=== PATIENT | male | born 1940 | race Caucasian/White ===

== ENCOUNTER 2021-11-12 14:22 | Emergency (ER) | payer MEDICARE ==
[~2021-11-12] VITALS: Ht 190.5 cm; Wt 111.3 kg
[2021-11-12] VITALS (10 sets, daily range): BP systolic 112–140; BP diastolic 68–85
[2021-11-12] MEDS ORDERED: LOSARTAN POTASS25 MG PO (16:52)
== END 2021-11-12 17:11 | disposition home or self-care (01) ==
LOC: ED 14:22
PROC: 2W3UXYZ Immobilization of Right Toe using Other Device (ICD-10-PCS; principal; 2021-11-12)
DX: S92.511A Displaced fracture of proximal phalanx of right lesser toe(s), initial encounter for closed fracture (principal); I10 Essential (primary) hypertension; G62.9 Polyneuropathy, unspecified; W18.40XA Slipping, tripping and stumbling without falling, unspecified, initial encounter; Y92.009 Unspecified place in unspecified non-institutional (private) residence as the place of occurrence of the external cause; Z86.718 Personal history of other venous thrombosis and embolism

== ENCOUNTER 2021-11-20 13:46 | Emergency (ER) | payer MEDICARE ==
[~2021-11-20] VITALS: Ht 190.5 cm; Wt 111.3 kg
[~2021-11-20 13:46] MED LIST: LOSARTAN POTASS25 MG PO
[2021-11-20] MEDS ORDERED: OMNICEF300 M1 PO (14:17)
[2021-11-20] MEDS ORDERED: DOXY-CAPS100 MG PO (14:17)
[2021-11-20 15:07] LABS: HEMATOCRIT 38.8 % (39.0-50.0); HEMOGLOBIN 13.8 g/dl (14.0-18.0); IMMATURE GRANULOCYTES 0.4 % (0.0-5.0); MEAN CELL VOLUME 106.3 fL CALC (80.0-100.0); MEAN CORPUSCULAR HGB 37.8 pG CALC (26.0-32.0); MEAN CORPUSCULAR HGB CONC 35.6 g/dL CAL (32.0-36.0); NEUT# 3.46 thou/uL (1.82-7.42); RED BLOOD COUNT 3.65 mill/uL (4.70-6.10); RED CELL DISTRI WIDTH 12.7 % (11.5-15.5)
[2021-11-20 15:32] LABS: ALBUMIN 3.9 g/dL (3.2-5.0); ALKALINE PHOSPHATASE 54 u/l (38-126); ANION GAP 13 (6-22 (CALC)); BILIRUBIN, TOTAL 1.2 mg/dL (0.0-1.4); BUN 14 mg/dL (8-23); BUN/CREATININE RATIO 15 (12-20 (CALC)); CARBON DIOXIDE 25 mmol/l (22-30); CHLORIDE 101 mmol/l (95-108); GFR FOR AFR.AMER. > 60 ML/MIN (>=60 (CALC)); GFR OTHER RACES > 60 ML/MIN (>=60 (CALC)); POTASSIUM 3.2 mmol/l (3.5-5.1); SGOT/AST 54 u/l (19-48); SODIUM 136 mmol/l (137-146); TOTAL PROTEIN 6.7 g/dL (6.3-8.2)
[2021-11-20 17:24] VITALS: BP 130/76
== END 2021-11-20 17:40 | disposition home or self-care (01) ==
LOC: ED 13:46
PROVIDERS: Family Medicine
DX: L03.114 Cellulitis of left upper limb (principal); I10 Essential (primary) hypertension; G62.9 Polyneuropathy, unspecified; Z86.718 Personal history of other venous thrombosis and embolism

== ENCOUNTER 2022-04-21 10:08 | Emergency (ER) | payer MEDICARE ==
[~2022-04-21] VITALS: Ht 190.5 cm; Wt 108.9 kg
[~2022-04-21 10:08] MED LIST changes: +DOXY-CAPS100 MG PO; +OMNICEF300 M1 PO
[2022-04-21 10:40] VITALS: BP 142/95
[2022-04-21 10:45] VITALS: BP 137/89
[2022-04-21 11:00] VITALS: BP 137/82
[2022-04-21 11:15] VITALS: BP 138/82
[2022-04-21 12:50] LABS: URINE BLOOD DIPSTICK TRACE-INTACT (NEGATIVE); URINE GLUCOSE - DIPSTICK NEGATIVE (NEGATIVE); URINE KETONE 40 mg/dL (NEGATIVE); URINE LEUK ESTERASE NEGATIVE (NEGATIVE); URINE PROTEIN - DIPSTICK TRACE mg/dL (NEG-TRACE)
[2022-04-21 12:56] LABS: URINE BILIRUBIN - DIPSTICK MODERATE (NEGATIVE)
[2022-04-21 12:57] LABS: URINE COLOR DK. YELLOW; URINE NITRITE - DIPSTICK POSITIVE (Negative)
[2022-04-21 12:58] LABS: URINE BACTERIA FEW hpf; URINE RBC 0-2 RBC/hpf (0-5)
[2022-04-21] MEDS ORDERED: NAPROXEN500 MG PO (13:10)
[2022-04-21 13:30] VITALS: BP 138/82
== END 2022-04-21 13:41 | disposition home or self-care (01) ==
LOC: ED 10:08
PROVIDERS: Emergency Medicine
DX: S09.90XA Unspecified injury of head, initial encounter (principal); R07.81 Pleurodynia; M54.6 Pain in thoracic spine; M54.2 Cervicalgia; I10 Essential (primary) hypertension; G62.9 Polyneuropathy, unspecified; H35.30 Unspecified macular degeneration; W01.0XXA Fall on same level from slipping, tripping and stumbling without subsequent striking against object, initial encounter; Y92.009 Unspecified place in unspecified non-institutional (private) residence as the place of occurrence of the external cause; Z79.01 Long term (current) use of anticoagulants; Z86.718 Personal history of other venous thrombosis and embolism

== ENCOUNTER 2022-05-04 16:11 | Observation (INO) | payer MEDICARE ==
[~2022-05-04] VITALS: Ht 185.4 cm; Wt 112.5 kg
[2022-05-04] VITALS (18 sets, daily range): BP systolic 42–148; BP diastolic 23–92
[~2022-05-04 16:11] MED LIST changes: +NAPROXEN500 MG PO
--- NOTE | 2022-05-04 16:27 | NUR ---
PT AMBULATED TO ROOM 6, NO ACUTE DISTRESS. EKG COMPLETED AND AND PT HOOKED UP TO MONITOR.
[2022-05-04 18:16] LABS: BASO% 0.6 % (0-3); HEMATOCRIT 38.1 % (39.0-50.0); HEMOGLOBIN 12.5 g/dl (14.0-18.0); LYMPH% 23.6 % (15-41); MEAN CELL VOLUME 111.1 fL CALC (80.0-100.0); MEAN CORPUSCULAR HGB 36.4 pG CALC (26.0-32.0); MEAN CORPUSCULAR HGB CONC 32.8 g/dL CAL (32.0-36.0); MONO% 5.7 % (2-13); NEUT# 3.44 thou/uL (1.82-7.42); NEUT% 68.1 % (42-76); RED BLOOD COUNT 3.43 mill/uL (4.70-6.10); RED CELL DISTRI WIDTH 12.9 % (11.5-15.5)
[2022-05-04 18:27] LABS: ALBUMIN 3.9 g/dL (3.2-5.0); ALKALINE PHOSPHATASE 65 u/l (38-126); BUN 11 mg/dL (8-23); BUN/CREATININE RATIO 12 (12-20 (CALC)); CARBON DIOXIDE 27 mmol/l (22-30); CHLORIDE 107 mmol/l (95-108); CREATININE 0.9 mg/dL (0.7-1.3); GFR FOR AFR.AMER. > 60 ML/MIN (>=60 (CALC)); GFR OTHER RACES > 60 ML/MIN (>=60 (CALC)); SGOT/AST 36 u/l (19-48); SODIUM 141 mmol/l (137-146)
[2022-05-04 18:29] LABS: ANION GAP 11 (6-22 (CALC)); BILIRUBIN, TOTAL 0.7 mg/dL (0.2-1.3); POTASSIUM 4.1 mmol/l (3.5-5.1)
[2022-05-04 18:42] LABS: INTERNATIONAL NORMALIZED RATIO 1.2 RATIO (0.7-1.3); PROTHROMBIN TIME 11.6 SECONDS (9.0-12.5)
[2022-05-04 18:45] LABS: D-DIMER 3.37 mg/L (0.19-0.60)
--- NOTE | 2022-05-04 18:54 | NUR ---
MAG 0.4 REPORTED TO CHRISTIAN
--- NOTE | 2022-05-04 19:39 | NUR ---
NOTIFIED RADIOLOGY PT HAS BEEN MEDICATED.
[2022-05-05] VITALS (12 sets, daily range): BP systolic 96–137; BP diastolic 37–81
--- NOTE | 2022-05-05 00:59 | NUR ---
GAVE REPORT TO АЛЕКСАНДР HORAN. BESSIE, NURSE SUP TO COME TRANSFER PT ONCE FLOOR IS READY. WILL CONTINUE TO MONITOR.
--- NOTE | 2022-05-05 02:14 | NUR ---
PATIENT CAME UP FROM ED AT THIS TIME ON STRETCHER. PATIENT ALERT AND ORIENTED X 3. PATIENT DENEIS ANY PAIN AT THIS TIME. PATIENT PRESENTED ON TELE AND READING SINUS RHYTHM AT 99. PROJECT TECHNICIAN DONE AT THIS TIME. LUNGS ARE CLEAR AND BOWEL SOUNDS PRESENT. PATIENT DOES PRESENT WITH 2+ BILATERAL ANKLE EDEMA AT THIS TIME. PATIENT ASSISTED TO BATHROOM AND DID HAVE LARGE SOFT BROWN BOWEL MOVEMENT AND THEN ASSISTED BACK TO BED. PATIENT IN ON ROOM AIR AND WITHOUT DIFFICULTY IN BREATHING AT THIS TIME. PATIENT GIVEN ROOM ORIENTATIONS AND FALL SAFETY CONTRACT SIGHED AT THIS TIME. SIDERAILS ARE UP X 2 CALL LIGHT WIHTIN REACH.
[2022-05-05 04:43] LABS: HEMATOCRIT 33.6 % (39.0-50.0); HEMOGLOBIN 11.3 g/dl (14.0-18.0); MEAN CELL VOLUME 110.2 fL CALC (80.0-100.0); MEAN CORPUSCULAR HGB CONC 33.6 g/dL CAL (32.0-36.0); RED BLOOD COUNT 3.05 mill/uL (4.70-6.10); RED CELL DISTRI WIDTH 12.9 % (11.5-15.5)
[2022-05-05 04:48] LABS: ALBUMIN 3.2 g/dL (3.2-5.0); ALKALINE PHOSPHATASE 57 u/l (38-126); ANION GAP 7 (6-22 (CALC)); BILIRUBIN, TOTAL 0.5 mg/dL (0.2-1.3); BUN 10 mg/dL (8-23); BUN/CREATININE RATIO 11 (12-20 (CALC)); CARBON DIOXIDE 29 mmol/l (22-30); CHLORIDE 107 mmol/l (95-108); CREATININE 0.8 mg/dL (0.7-1.3); GFR FOR AFR.AMER. > 60 ML/MIN (>=60 (CALC)); GFR OTHER RACES > 60 ML/MIN (>=60 (CALC)); POTASSIUM 3.4 mmol/l (3.5-5.1); SGOT/AST 32 u/l (19-48); SODIUM 140 mmol/l (137-146); TOTAL PROTEIN 5.8 g/dL (6.3-8.2)
[2022-05-05 05:02] LABS: MAGNESIUM 1.1 mg/dL (1.6-2.3)
--- NOTE | 2022-05-05 08:09 | NUR ---
RECEIVED PATIENT IN BED. RESTING COMFORTABLE. DENIES ANY PAIN OR DISCOMFORT.
--- NOTE | 2022-05-05 08:48 | NUR ---
TELECOMMUNICATIONS MANAGER HERE TO EVALUATE THE PATIENT.
[2022-05-05] MEDS ORDERED: PROTONIX40 M2 PO (09:09)
[2022-05-05] MEDS ORDERED: TADALAFIL5 MG PO (09:11)
[2022-05-05] MEDS ORDERED: LOSARTAN POTASS25 MG PO (09:11)
[2022-05-05] MEDS ORDERED: TORSEMIDE20 M1 PO (09:12)
[2022-05-05] MEDS ORDERED: ASPIRIN81 MG PO (09:13)
[2022-05-05] MEDS ORDERED: NORVASC5 M1 PO (09:13)
[2022-05-05] MEDS ORDERED: ALLOPURINOL300 MG PO (09:14)
[2022-05-05] MEDS ORDERED: POTASSIUM CHLO20 MEQ PO (09:15)
[2022-05-05] MEDS ORDERED: CALCIUM600 M1 PO (09:16)
--- NOTE | 2022-05-05 09:48 | NUR ---
ASSISTED PATIENT IN THE BATHROOM . NO C/O OF PAIN.
--- NOTE | 2022-05-05 11:20 | NUR ---
MD ON THE BEDSIDE AND LOG CHIPPER DOING EVAL. THE PATIENT.
--- NOTE | 2022-05-05 12:25 | NUR ---
RN RESOURCE NURSE CALLED VIA TELEHEALTH GOT DISCONNECTED. UNABLE TO HEAR THE PATIENT .
--- NOTE | 2022-05-05 14:18 | NUR ---
PATIENT WENT DOWN FOR ECHOCARDIOGRAM
[2022-05-05] MEDS ORDERED: CARDIZEM CD120 MG PO (16:02)
== END 2022-05-05 16:37 ==
LOC: ED 16:11 → MS2 22:55
PROVIDERS: Nurse Practitioner; ADMIT Internal Medicine; ATTEND Internal Medicine
DX: R00.0 Tachycardia, unspecified (principal); E83.42 Hypomagnesemia; I10 Essential (primary) hypertension; J44.9 Chronic obstructive pulmonary disease, unspecified; G62.9 Polyneuropathy, unspecified; Z86.718 Personal history of other venous thrombosis and embolism
CPT/HCPCS: J3475; Q9967

== ENCOUNTER 2022-07-20 15:03 | Observation (INO) | payer MEDICARE ==
[~2022-07-20] VITALS: Ht 185.4 cm; Wt 110.7 kg
[2022-07-20] VITALS (11 sets, daily range): BP systolic 139–159; BP diastolic 70–93
[~2022-07-20 15:03] MED LIST changes: +ALLOPURINOL300 MG PO; +ASPIRIN81 MG PO; +CALCIUM600 M1 PO; +CARDIZEM CD120 MG PO; +NORVASC5 M1 PO; +POTASSIUM CHLO20 MEQ PO; +PROTONIX40 M2 PO; +TADALAFIL5 MG PO; +TORSEMIDE20 M1 PO
[2022-07-20] MEDS ORDERED: CARTIA XT180 MG PO (15:34)
[2022-07-20 16:02] LABS: BASO% 0.6 % (0-3); EOS% 0.4 % (0-8); IMMATURE GRANULOCYTES 0.2 % (0.0-5.0); LYMPH% 14.2 % (15-41); MEAN CORPUSCULAR HGB 35.6 pG CALC (26.0-32.0); MEAN CORPUSCULAR HGB CONC 34.4 g/dL CAL (32.0-36.0); MONO% 12.6 % (2-13); NEUT# 3.66 thou/uL (1.82-7.42); RED BLOOD COUNT 4.1 mill/uL (4.70-6.10); RED CELL DISTRI WIDTH 13.3 % (11.5-15.5)
[2022-07-20 16:04] LABS: HEMATOCRIT 42.4 % (39.0-50.0); HEMOGLOBIN 14.6 g/dl (14.0-18.0); MEAN CELL VOLUME 103.4 fL CALC (80.0-100.0)
[2022-07-20 16:41] LABS: ALBUMIN 3.8 g/dL (3.2-5.0); ALKALINE PHOSPHATASE 77 u/l (38-126); ANION GAP 11 (6-22 (CALC)); BUN 13 mg/dL (8-23); BUN/CREATININE RATIO 21 (12-20 (CALC)); CARBON DIOXIDE 31 mmol/l (22-30); CHLORIDE 97 mmol/l (95-108); CREATININE 0.6 mg/dL (0.7-1.3); ETHYL ALCOHOL 0 mg/dl (0-30); GFR FOR AFR.AMER. > 60 ML/MIN (>=60 (CALC)); GFR OTHER RACES > 60 ML/MIN (>=60 (CALC)); SGOT/AST 41 u/l (19-48); SODIUM 135 mmol/l (137-146); TOTAL PROTEIN 6.4 g/dL (6.3-8.2)
[2022-07-20 16:42] LABS: BILIRUBIN, TOTAL 1.7 mg/dL (0.2-1.3)
[2022-07-20] MEDS ORDERED: SOAANZ20 MG (17:51)
[2022-07-21 04:00] VITALS: BP 132/80
[2022-07-21 05:25] LABS: HEMATOCRIT 43.1 % (39.0-50.0); HEMOGLOBIN 14.8 g/dl (14.0-18.0); MEAN CELL VOLUME 103.9 fL CALC (80.0-100.0); MEAN CORPUSCULAR HGB 35.7 pG CALC (26.0-32.0); MEAN CORPUSCULAR HGB CONC 34.3 g/dL CAL (32.0-36.0); RED BLOOD COUNT 4.15 mill/uL (4.70-6.10); RED CELL DISTRI WIDTH 13.5 % (11.5-15.5)
[2022-07-21 05:46] LABS: ALBUMIN 3.7 g/dL (3.2-5.0); ALKALINE PHOSPHATASE 79 u/l (38-126); ANION GAP 9 (6-22 (CALC)); BILIRUBIN, TOTAL 1.8 mg/dL (0.2-1.3); BUN 9 mg/dL (8-23); BUN/CREATININE RATIO 15 (12-20 (CALC)); CARBON DIOXIDE 32 mmol/l (22-30); CHLORIDE 97 mmol/l (95-108); CREATININE 0.6 mg/dL (0.7-1.3); GFR FOR AFR.AMER. > 60 ML/MIN (>=60 (CALC)); GFR OTHER RACES > 60 ML/MIN (>=60 (CALC)); SGOT/AST 38 u/l (19-48); SODIUM 135 mmol/l (137-146); TOTAL PROTEIN 6.6 g/dL (6.3-8.2)
[2022-07-21 05:50] LABS: MAGNESIUM 1.3 mg/dL (1.6-2.3)
[2022-07-21 07:02] VITALS: BP 133/77
[2022-07-21 11:13] VITALS: BP 103/63
[2022-07-21 16:15] VITALS: BP 128/79
[2022-07-21 18:45] VITALS: BP 120/70
[2022-07-22 00:11] VITALS: BP 112/71
[2022-07-22 04:45] VITALS: BP 110/64
[2022-07-22 04:58] LABS: BASO% 0.3 % (0-3); EOS% 0.3 % (0-8); HEMATOCRIT 42.3 % (39.0-50.0); HEMOGLOBIN 14.3 g/dl (14.0-18.0); IMMATURE GRANULOCYTES 0.3 % (0.0-5.0); MEAN CORPUSCULAR HGB 35.5 pG CALC (26.0-32.0); MEAN CORPUSCULAR HGB CONC 33.8 g/dL CAL (32.0-36.0); MONO% 10.8 % (2-13); NEUT# 5.75 thou/uL (1.82-7.42); NEUT% 72.3 % (42-76); RED BLOOD COUNT 4.03 mill/uL (4.70-6.10); RED CELL DISTRI WIDTH 13.5 % (11.5-15.5)
[2022-07-22 05:15] LABS: ALBUMIN 3.3 g/dL (3.2-5.0); ALKALINE PHOSPHATASE 68 u/l (38-126); BILIRUBIN, TOTAL 2.2 mg/dL (0.2-1.3); BUN 12 mg/dL (8-23); BUN/CREATININE RATIO 18 (12-20 (CALC)); CARBON DIOXIDE 26 mmol/l (22-30); CHLORIDE 98 mmol/l (95-108); CREATININE 0.7 mg/dL (0.7-1.3); GFR FOR AFR.AMER. > 60 ML/MIN (>=60 (CALC)); GFR OTHER RACES > 60 ML/MIN (>=60 (CALC)); SGOT/AST 33 u/l (19-48); SODIUM 131 mmol/l (137-146); TOTAL PROTEIN 6.3 g/dL (6.3-8.2)
[2022-07-22 05:17] LABS: ANION GAP 10 (6-22 (CALC)); POTASSIUM 3.1 mmol/l (3.5-5.1)
[2022-07-22 05:32] LABS: MAGNESIUM 1.7 mg/dL (1.6-2.3)
[2022-07-22 06:51] VITALS: BP 108/66
[2022-07-22 10:31] VITALS: BP 128/77
[2022-07-22 16:14] VITALS: BP 110/67
[2022-07-22 20:51] VITALS: BP 132/65
[2022-07-23 00:12] VITALS: BP 125/79
[2022-07-23 04:05] VITALS: BP 108/65
[2022-07-23 05:45] LABS: ALKALINE PHOSPHATASE 60 u/l (38-126); ANION GAP 6 (6-22 (CALC)); BILIRUBIN, TOTAL 1.5 mg/dL (0.2-1.3); BUN 14 mg/dL (8-23); BUN/CREATININE RATIO 21 (12-20 (CALC)); CARBON DIOXIDE 29 mmol/l (22-30); CHLORIDE 97 mmol/l (95-108); CREATININE 0.7 mg/dL (0.7-1.3); GFR FOR AFR.AMER. > 60 ML/MIN (>=60 (CALC)); GFR OTHER RACES > 60 ML/MIN (>=60 (CALC)); MAGNESIUM 1.6 mg/dL (1.6-2.3); POTASSIUM 3.2 mmol/l (3.5-5.1); SGOT/AST 36 u/l (19-48); SODIUM 130 mmol/l (137-146); TOTAL PROTEIN 5.8 g/dL (6.3-8.2)
[2022-07-23 05:58] LABS: BASO% 0.5 % (0-3); EOS% 0.9 % (0-8); HEMATOCRIT 37.9 % (39.0-50.0); IMMATURE GRANULOCYTES 0.3 % (0.0-5.0); MEAN CELL VOLUME 105.9 fL CALC (80.0-100.0); MEAN CORPUSCULAR HGB 36.3 pG CALC (26.0-32.0); MEAN CORPUSCULAR HGB CONC 34.3 g/dL CAL (32.0-36.0); MONO% 11.9 % (2-13); NEUT# 4.22 thou/uL (1.82-7.42); NEUT% 66.4 % (42-76); RED BLOOD COUNT 3.58 mill/uL (4.70-6.10); RED CELL DISTRI WIDTH 13.2 % (11.5-15.5)
[2022-07-23 07:12] VITALS: BP 104/63
[2022-07-23 11:17] VITALS: BP 133/78
[2022-07-23] MEDS ORDERED: MAGNESIUM-OXID400 MG PO (12:29)
== END 2022-07-23 15:38 ==
LOC: ED 15:03 → ED-I 17:10 → ED 17:34 → MS2 17:35
PROVIDERS: Family Medicine; Nurse Practitioner Family; ADMIT Internal Medicine; ATTEND Internal Medicine
DX: E83.42 Hypomagnesemia (principal); E87.6 Hypokalemia; F10.239 Alcohol dependence with withdrawal, unspecified; R50.9 Fever, unspecified; I10 Essential (primary) hypertension; J44.9 Chronic obstructive pulmonary disease, unspecified; G62.9 Polyneuropathy, unspecified; M54.9 Dorsalgia, unspecified; H35.30 Unspecified macular degeneration; Y90.0 Blood alcohol level of less than 20 mg/100 ml; T50.916A Underdosing of multiple unspecified drugs, medicaments and biological substances, initial encounter; Z91.128 Patient's intentional underdosing of medication regimen for other reason; Z86.718 Personal history of other venous thrombosis and embolism; Z86.711 Personal history of pulmonary embolism
CPT/HCPCS: J1650; J2060; J3475

== ENCOUNTER 2024-03-29 07:25 | Inpatient (IN) | payer MEDICARE ==
[2024-03-29] VITALS (28 sets, daily range): BP systolic 126–157; BP diastolic 72–133
[~2024-03-29] VITALS: Ht 185.4 cm; Wt 109.0 kg
[~2024-03-29 07:25] MED LIST changes: +CARTIA XT180 MG PO; +MAGNESIUM-OXID400 MG PO; +SOAANZ20 MG
[2024-03-29] MEDS ORDERED: LORazepam 2 MG/ML IV ONE (07:35)
[2024-03-29] MEDS ORDERED: dilTIAZem HCL 50 MG/10 ML SDV IV ONE (07:40)
[2024-03-29 07:55] LABS: BASO% 0.3 % (0-3); HEMATOCRIT 40.9 % (39.0-50.0); HEMOGLOBIN 14.3 g/dl (14.0-18.0); IMMATURE GRANULOCYTES 0.2 % (0.0-5.0); LYMPH% 14.6 % (15-41); MEAN CORPUSCULAR HGB 40.3 pG CALC (26.0-32.0); MONO% 7.8 % (2-13); NEUT# 4.55 thou/uL (1.82-7.42); NEUT% 77.1 % (42-76); RED BLOOD COUNT 3.55 mill/uL (4.70-6.10)
[2024-03-29 08:08] LABS: BILIRUBIN, TOTAL 1.7 mg/dL (0.2-1.3); CREATININE 0.7 mg/dL (0.7-1.3); POTASSIUM 3.6 mmol/l (3.5-5.1); TOTAL PROTEIN 6.7 g/dL (6.3-8.2)
[2024-03-29 08:31] LABS: MEAN CELL VOLUME 115.2 fL CALC (80.0-100.0)
[2024-03-29 08:37] LABS: ALBUMIN 4.1 g/dL (3.2-5.0)
[2024-03-29 08:39] LABS: TSH, 3RD GENERATION 4.23 uIU/mL (0.47 - 4.68)
[2024-03-29] MEDS ORDERED: THIAMINE HCL 100 MG/ML 2ML VIAL IV ONE ×2 (10:15→10:30)
[2024-03-29] MEDS ORDERED: ENOXAPARIN SODIUM 80 MG/0.8 ML SYR SC ONE (10:35)
[2024-03-29] MEDS ORDERED: ENOXAPARIN SODIUM 30 MG/0.3 ML INJ SC ONE (10:35)
[2024-03-29] MEDS ORDERED: MAGNESIUM HYDROXIDE 30 ML UDC PO PRN (12:45)
[2024-03-29] MEDS ORDERED: ACETAMINOPHEN 325 MG/TAB PO PRN (12:45)
[2024-03-29] MEDS ORDERED: chlordiazePOXIDE HCL 25 MG CAP PO PRN (12:45)
[2024-03-29] MEDS ORDERED: LORazepam 2 MG/ML IV PRN (12:45)
[2024-03-29] MEDS ORDERED: SODIUM CHLORIDE 0.9% 1,000 ML IV PRN (12:45)
[2024-03-29] MEDS ORDERED: ONDANSETRON HCl 4 MG/2 ML SDV IV PRN (12:50)
[2024-03-29] MEDS ORDERED: FUROSEMIDE 40 MG/4 ML SDV IV SCH (13:30)
[2024-03-29] MEDS ORDERED: ASPIRIN 81 MG/TAB PO SCH (13:30)
[2024-03-29] MEDS ORDERED: PANTOPRAZOLE SODIUM Sesquihydr 40 MG/TAB PO SCH (13:30)
[2024-03-29] MEDS ORDERED: MULTIPLE VITAMIN 10 ML,THIAMINE HCL 100 MG in SODIUM CHLORIDE 0.9% 1,000 ML IV SCH (14:00)
[2024-03-29] MEDS ORDERED: METOPROLOL SUCCINATE 50 MG/TAB PO SCH (15:00)
[2024-03-29] MEDS ORDERED: APIXABAN BASE 5 MG TAB PO SCH (21:00)
[2024-03-29] MEDS ORDERED: ENOXAPARIN SODIUM 80 MG/0.8 ML SYR SC SCH (21:00)
[2024-03-29] MEDS ORDERED: ENOXAPARIN SODIUM 30 MG/0.3 ML INJ SC SCH (21:00)
[2024-03-30] VITALS (8 sets, daily range): BP systolic 116–145; BP diastolic 64–87
[2024-03-30 06:24] LABS: ALBUMIN 3.3 g/dL (3.2-5.0); BILIRUBIN, TOTAL 2.1 mg/dL (0.2-1.3); CREATININE 0.6 mg/dL (0.7-1.3); POTASSIUM 3.5 mmol/l (3.5-5.1); TOTAL PROTEIN 5.9 g/dL (6.3-8.2)
[2024-03-30 06:35] LABS: BASO% 0.6 % (0-3); EOS% 0.2 % (0-8); HEMOGLOBIN 13.8 g/dl (14.0-18.0); IMMATURE GRANULOCYTES 0.2 % (0.0-5.0); LYMPH% 15.6 % (15-41); MEAN CELL VOLUME 121.5 fL CALC (80.0-100.0); MEAN CORPUSCULAR HGB CONC 35.4 g/dL CAL (32.0-36.0); MONO% 14.4 % (2-13); NEUT# 3.73 thou/uL (1.82-7.42); RED BLOOD COUNT 3.21 mill/uL (4.70-6.10); RED CELL DISTRI WIDTH 13.1 % (11.5-15.5)
[2024-03-30] MEDS ORDERED: MAGNESIUM SULFATE HEPTAHYDRATE 100 ML IV SCH (09:00)
[2024-03-30 11:53] LABS: INTERNATIONAL NORMALIZED RATIO 1.1 RATIO (0.7-1.3)
[2024-03-31] VITALS (11 sets, daily range): BP systolic 117–148; BP diastolic 62–86
[2024-03-31 05:32] LABS: BASO% 0.2 % (0-3); EOS% 0.2 % (0-8); HEMATOCRIT 38.2 % (39.0-50.0); HEMOGLOBIN 13.3 g/dl (14.0-18.0); IMMATURE GRANULOCYTES 0.5 % (0.0-5.0); LYMPH% 14.1 % (15-41); MEAN CELL VOLUME 116.8 fL CALC (80.0-100.0); MEAN CORPUSCULAR HGB 40.7 pG CALC (26.0-32.0); MEAN CORPUSCULAR HGB CONC 34.8 g/dL CAL (32.0-36.0); MONO% 11.5 % (2-13); NEUT# 4.43 thou/uL (1.82-7.42); NEUT% 73.5 % (42-76); RED BLOOD COUNT 3.27 mill/uL (4.70-6.10); RED CELL DISTRI WIDTH 12.9 % (11.5-15.5)
[2024-03-31 05:57] LABS: ALBUMIN 3.1 g/dL (3.2-5.0); BILIRUBIN, TOTAL 1.9 mg/dL (0.2-1.3); CREATININE 0.5 mg/dL (0.7-1.3); POTASSIUM 3.2 mmol/l (3.5-5.1); TOTAL PROTEIN 5.6 g/dL (6.3-8.2)
[2024-03-31 06:05] LABS: MAGNESIUM 1.5 mg/dL (1.6-2.3)
[2024-03-31] MEDS ORDERED: POTASSIUM CHLORIDE 20 MEQ/TAB PO SCH (09:00)
[2024-03-31] MEDS ORDERED: MAGNESIUM SULFATE HEPTAHYDRATE 50 ML IV SCH (09:00)
[2024-03-31] MEDS ORDERED: SODIUM CHLORIDE 0.9% 0 ML IV ONE (09:17)
[2024-04-01 04:54] VITALS: BP 134/74
[2024-04-01 06:09] LABS: BASO% 0.2 % (0-3); EOS% 0.8 % (0-8); HEMATOCRIT 33.9 % (39.0-50.0); HEMOGLOBIN 11.7 g/dl (14.0-18.0); IMMATURE GRANULOCYTES 0.6 % (0.0-5.0); LYMPH% 17.3 % (15-41); MEAN CELL VOLUME 116.1 fL CALC (80.0-100.0); MEAN CORPUSCULAR HGB 40.1 pG CALC (26.0-32.0); MEAN CORPUSCULAR HGB CONC 34.5 g/dL CAL (32.0-36.0); MONO% 11.7 % (2-13); NEUT# 3.33 thou/uL (1.82-7.42); NEUT% 69.4 % (42-76); RED BLOOD COUNT 2.92 mill/uL (4.70-6.10)
[2024-04-01 06:22] LABS: ALBUMIN 2.7 g/dL (3.2-5.0); BILIRUBIN, TOTAL 1.7 mg/dL (0.2-1.3); CREATININE 0.6 mg/dL (0.7-1.3); MAGNESIUM 1.6 mg/dL (1.6-2.3); POTASSIUM 2.9 mmol/l (3.5-5.1); TOTAL PROTEIN 5.1 g/dL (6.3-8.2)
[2024-04-01 10:50] VITALS: BP 110/67
[2024-04-01] MEDS ORDERED: ELIQUIS5 MG PO (11:50)
[2024-04-01] MEDS ORDERED: LOPRESSOR 550 MG/TAB PO (11:52)
[2024-04-01] MEDS ORDERED: CEPHALEXIN250 M1 PO (11:54)
[2024-04-01] MEDS ORDERED: POTASSIUM CHLORIDE 20MEQ 100 ML IV SCH (15:00)
[2024-04-01] MEDS ORDERED: POTASSIUM CHLORIDE 20 MEQ/TAB PO SCH (16:00)
[2024-04-01 17:05] VITALS: BP 112/63
[2024-04-05] MEDS ORDERED: APIXABAN BASE 5 MG TAB PO SCH (21:00)
== END 2024-04-01 17:03 | DRG 897 ==
LOC: ED 07:25 → ED-I 10:01 → ED 10:15 → ED-I 10:16 → MS2 10:16
PROVIDERS: Emergency Medicine; Nurse Practitioner Family; ADMIT Internal Medicine; ATTEND Internal Medicine
PROC: 0S9D3ZZ Drainage of Left Knee Joint, Percutaneous Approach (ICD-10-PCS; principal; 2024-03-30)
DX: F10.139 Alcohol abuse with withdrawal, unspecified (principal); I82.411 Acute embolism and thrombosis of right femoral vein; I82.433 Acute embolism and thrombosis of popliteal vein, bilateral; I48.91 Unspecified atrial fibrillation; I10 Essential (primary) hypertension; E83.42 Hypomagnesemia; M25.462 Effusion, left knee; M17.12 Unilateral primary osteoarthritis, left knee; G62.9 Polyneuropathy, unspecified; D69.6 Thrombocytopenia, unspecified; R25.1 Tremor, unspecified; T50.916A Underdosing of multiple unspecified drugs, medicaments and biological substances, initial encounter; Z91.128 Patient's intentional underdosing of medication regimen for other reason; Z86.718 Personal history of other venous thrombosis and embolism; Z86.711 Personal history of pulmonary embolism
CPT/HCPCS: J0690; J1650; J1940; J2060; J3411; J3475; J3480